=== PATIENT | female | born 1940 | race Caucasian/White ===

== ENCOUNTER 2017-07-31 05:37 | Day surgery (SDC) | payer OTHER ==
--- NOTE | 2017-07-29 11:30 | GHP ---
[f rep st] PREOP HISTORY AND PHYSICAL DATE OF ADMISSION: 07/31/2017 DATE OF SURGERY: 07/31/2017. PREOPERATIVE DIAGNOSIS: Esophageal cancer. HISTORY OF PRESENT ILLNESS: The patient is a pleasant 77-year-old woman who presented to our office to discuss PowerPort placement. She was diagnosed with esophageal cancer. She underwent resection o n 05/15/2017 at an outside hospital, and her oncologist is Dr. Carroll. She had her G-tube recently re moved. She has been able to tolerate oral intake. At the time of her office visit, she was unsure i f she wanted to go through with chemotherapy. However, she has decided to proceed with this and will require a port for ease of IV access. PAST MEDICAL HISTORY: Chronic pain, esophageal cancer, GERD, low back pain, radiculopathy, spinal st enosis, thyroid disease. PAST SURGICAL HISTORY: Esophagectomy as above. ALLERGIES: Hydrocodone causes nausea. FAMILY HISTORY: None significant. SOCIAL HISTORY: She denies tobacco, alcohol or recreational drug use. REVIEW OF SYSTEMS: Ten-point review of systems is negative, aside from the HPI. PHYSICAL EXAMINATION: GENERAL: Well-developed, well-nourished woman in no acute distress. HEENT: Normocephalic, atraumatic. No hearing deficits. Pupils equal and round. No scleral icterus. Mucou s membranes moist. NECK: Trachea midline. RESPIRATORY: Clear to auscultation bilaterally. No inc reased work of breathing. CARDIOVASCULAR: Regular rate and rhythm. No peripheral edema. SKIN: Wa rm and dry. PSYCH: Mood and affect normal. NEURO: Grossly intact. IMPRESSION AND PLAN: A 77-year-old woman with esophageal cancer, who will require a port for chemoth erapy. We discussed risks of surgery, including but not limited to, heart attack, stroke, blood clot s or . We discussed risk of infection, bleeding, damage to surrounding structures, pneumothorax , or need for device removal. She understands the risks and would like to proceed. The patient was additionally seen by Dr. Poly Young, who agrees with the above impression and plan. /[id number]/MODL
[2017-07-31] MEDS ORDERED: ceFAZolin 2 GM/SWFI 2 GM/20 ML SYR IVP ONE (05:52)
[2017-07-31] MEDS ORDERED: LR 1,000 ML IV ONE (05:53)
[2017-07-31] MEDS ORDERED: LIDOCAINE 1% 2 ML INJ ID PRN (05:53)
--- NOTE | 2017-07-31 06:58 | PDHPUP ---
History & Physical Update H&P update statement: This history and physical update is based on an assessment of the patient which was completed after admission or registration (within 24 hours), but prior to the surgery/procedure. H&P update: H&P reviewed & patient examined, no change in patient's condition since H&P completed
[2017-07-31 07:04] LABS: INR 1.1 (0.83-1.16); PROTIME(PATIENT) 14.4 SEC (12.0-15.0)
--- NOTE | 2017-07-31 07:07 | PDANEPAE ---
ANE Past Medical History - Cardiovascular History Hx Hypertension: Yes Hx Arrhythmias: Yes Hx Chest Pain: No Hx Coronary Artery / Peripheral Vascular Disease: No Hx CHF / Valvular Disease: No Hx Palpitations: No Cardiovascular History Comment: HTN - Pulmonary History Hx COPD: No Hx Asthma/Reactive Airway Disease: No Hx Recent Upper Respiratory Infection: No Hx Oxygen in Use at Home: No Hx Sleep Apnea: No Sleep Apnea Screening Result - Last Documented: Negative - Neurologic History Hx Cerebrovascular Accident: No Hx Seizures: No Hx Dementia: No - Endocrine History Hx Diabetes: No Endocrine History Comment: thyroid medication - Renal History Hx Renal Disorders: No - Liver History Hx Hepatic Disorders: No - Neurological & Psychiatric Hx Hx Neurological and Psychiatric Disorders: Yes Neurological / Psychiatric History Comment: TREMOR - Cancer History Hx Cancer: Yes Cancer History Comment: esophogeal cancer - Congenital Disorder History Hx Congenital Disorders: No - GI History Hx Gastrointestinal Disorders: Yes Gastrointestinal History Comment: stone's esophogus, silent acid reflux - Other Health History Other Health History: dvt'S left arm. hives crotch area - Chronic Pain History Chronic Pain: Yes (lower) - Surgical History Prior Surgeries: 13 endoscopies; thyroid 95% removal at age 28; colonoscopy; cosmetic ANE Review of Systems Review of Systems: - Exercise capacity METS (RN): 5 METS ANE Patient History - Allergies Allergies/Adverse Reactions: hydrocodone [From Vicodin] Allergy (Mild, Verified 05/08/17 17:08) Vomiting - Home Medications Home Medications: Calcium Carbonate [Tums Ultra] 05/08/17 [Last Taken Unknown] Cetirizine [ZyrTEC 10 mg (*)] 05/08/17 [Last Taken 07/30/16] Cholecalciferol (Vitamin D3) [Vitamin D3] 05/08/17 [Last Taken 07/27/17] Esomeprazole Mag Trihydrate [Nexium] 05/08/17 [Last Taken 07/30/17 16:30] Levothyroxine [Synthroid 75 mcg (*)] 05/08/17 [Last Taken 07/30/17 08:00] Prednisolone [Millipred] 05/08/17 [Last Taken 07/30/17 08:00] Tramadol HCl 05/08/17 [Last Taken 07/30/17 16:30] clonazePAM [Klonopin (*)] 05/08/17 [Last Taken 07/30/17 20:30] Amlodipine Besylate 07/27/17 [Last Taken 07/30/17 08:00] Warfarin Sodium 07/27/17 [Last Taken 07/27/17 20:30] - NPO status NPO Since - Liquids (Date): 07/31/17 NPO Since - Liquids (Time): 00:00 NPO Since - Solids (Date): 07/30/17 NPO Since - Solids (Time): 18:30 - Smoking Hx Smoking Status: Former smoker - Family Anes Hx Family Hx Anesthesia Complications: none ANE Labs/Vital Signs - Vital Signs Blood Pressure: 128/62 Heart Rate: 71 Respiratory Rate: 18 O2 Sat (%): 96 Height: 162.56 cm Weight: 54.885 kg ANE Physical Exam - Airway Neck exam: FROM Mallampati Score: Class 2 - Pulmonary Pulmonary: no respiratory distress - Cardiovascular Cardiovascular: regular rate and rhythym - ASA Status ASA Status: III ANE Anesthesia Plan Total IV Anesthesia: Yes
[2017-07-31] MEDS ORDERED: BUPIVACAINE 0.5% 30 ML SDV ONE (07:09)
[2017-07-31] MEDS ORDERED: PROPOFOL/EMULSION 500 MG/50 ML BOTTLE IV ONE (07:16)
[2017-07-31] MEDS ORDERED: LIDOCAINE 2% 100 MG/5 ML SYR ONE (07:16)
[2017-07-31] MEDS ORDERED: fentaNYL 100 MCG/2 ML INJ ONE (07:16)
--- NOTE | 2017-07-31 08:03 | POSTOPPROG ---
Post Op Note Date of Operation: 07/31/17 Surgeon: Poly Young Anesthesiologist: rufino Anesthesia: IV Sedation Pre-op Diagnosis: esophageal ca Post-op Diagnosis: same Indication: 77 yo with esophageal ca Procedure: R IJ port Findings: tip svc Inf/Abcess present in the surg proc area at time of surgery?: No EBL: Minimal Specimen(s): none
[2017-07-31] MEDS ORDERED: ACETAMINOPHEN 500 MG TAB PO PRN (08:06)
[2017-07-31] MEDS ORDERED: fentaNYL 100 MCG/2 ML INJ IVP PRN (08:06)
[2017-07-31] MEDS ORDERED: ALBUTEROL 3 ML DEYVIAL IH PRN (08:06)
[2017-07-31] MEDS ORDERED: NALOXONE HCL 0.4 MG/ML INJ IVP PRN (08:06)
[2017-07-31] MEDS ORDERED: ONDANSETRON 4 MG/2 ML VIAL IVP PRN (08:06)
--- NOTE | 2017-07-31 08:07 | POSTANESTH ---
Post Anesthetic Evaluation Cardiovascular Status: Similar to Pre-Op Cond Respiratory Status: Similar to Pre-op Cond. Level of Consciousness/Mental Status: Mildly Sleepy, Arousable Pain Control: Adequate, Prn Tx Ordered Nausea/Vomiting Control: Adequate, Prn Tx Ordered Complications Possibly Related to Anesthesia: None Noted
--- NOTE | 2017-07-31 08:27 | GOP ---
[f rep st] OPERATIVE REPORT DATE OF OPERATION: 07/31/2017 SURGEON: Poly Young MD ANESTHESIA: Monitored anesthesia care with IV sedation. ANESTHESIOLOGIST: Tiago Lopez MD PREOPERATIVE DIAGNOSIS: Esophageal cancer. POSTOPERATIVE DIAGNOSIS: Esophageal cancer. PROCEDURE PERFORMED: Right internal jugular ultrasound-guided PowerPort placement. FINDINGS: Tip in the SVC. SPECIMENS: None. ESTIMATED BLOOD LOSS: 10 cc. INDICATIONS: The patient is a 77-year-old woman with esophageal cancer. She requires a port for cathy motherapy. DESCRIPTION OF PROCEDURE: The patient was brought into the operating room, placed supine on the tabl e. Monitored anesthesia care with IV sedation was performed. Her bilateral neck and chest were prep ped and draped in the usual sterile fashion. I infiltrated all sites with 20 cc of 0.5% Marcaine sera or to making incisions. I used ultrasound to identify the right internal jugular vein. It was compr essible. I used a large bore needle to access the internal jugular vein with dark return of blood fl ow. I threaded the guidewire and removed the needle. I created a pocket to accommodate the port in the right chest. I tunneled this up to the insertion site under fluoroscopy. I measured the cathete r and cut it to size. Using the Seldinger technique, I placed a dilator and sheath over the wire. I removed the wire and the dilator. I threaded the catheter through the sheath and peeled away the sh eath. Placement was confirmed with fluoroscopy. The port withdrew blood easily and was flushed with heparin. The pocket was closed with 3-0 Vicryl followed by 4-0 Monocryl. Dermabond applied. She w as awakened in the operating room, transferred to PACU in stable condition. A chest x-ray is pending . /[id number]/MODL
[2017-07-31 09:18] VITALS: BP 112/55
== END 2017-07-31 09:30 | disposition home or self-care (01) ==
LOC: FSGY 05:37
PROVIDERS: ATTEND Surgery
PROC: 02H633Z Insertion of Infusion Device into Right Atrium, Percutaneous Approach (ICD-10-PCS; principal; 2017-07-31 07:15)
PROC: 0JH60XZ Insertion of Tunneled Vascular Access Device into Chest Subcutaneous Tissue and Fascia, Open Approach (ICD-10-PCS; principal; 2017-07-31 07:15)
DX: C15.9 Malignant neoplasm of esophagus, unspecified (principal)
CPT/HCPCS: C1788; J0690; J1642; J2001; J2704; J3010

== ENCOUNTER → 2018-02-10 | Outpatient (CLI) | payer OTHER | LOC: FIMAGING 13:31 | PROVIDERS: ATTEND Family Medicine | DX: M81.0 Age-related osteoporosis without current pathological fracture (principal); Z78.0 Asymptomatic menopausal state; E07.9 Disorder of thyroid, unspecified; Z79.899 Other long term (current) drug therapy; Z79.52 Long term (current) use of systemic steroids; M85.80 Other specified disorders of bone density and structure, unspecified site ==